=== PATIENT | female | born 1975 | race Caucasian/White ===

== ENCOUNTER 2022-02-10 12:55 | Emergency (ER) | payer BC ==
[~2022-02-10] VITALS: Ht 154.9 cm; Wt 74.8 kg
[2022-02-10 13:50] LABS: BASOPHILS % (AUTO) 0.4 % (0.0-5.0); EOSINOPHILS % (AUTO) 1.3 % (0.0-8.0); HEMATOCRIT 41.6 % (36-48); LYMPHOCYTES % (AUTO) 43.2 % (21.0-51.0); MEAN CORPUSCULAR HEMOGLOBIN 31.7 pg (27.0-33.0); MEAN CORPUSCULAR HGB CONC 35.1 g/dL (32.0-36.0); MEAN CORPUSCULAR VOLUME 90.4 fL (79-99); MONOCYTES % (AUTO) 7.7 % (3.0-13.0); NEUTROPHILS % (AUTO) 47.1 % (40.0-77.0); PLATELET COUNT (AUTO) 238 K/uL (130-400); RED CELL DISTRIBUTION WIDTH 11.9 % (11.0-15.5); WHITE BLOOD COUNT (AUTO) 7.2 K/uL (4.8-10.8)
[2022-02-10 14:03] LABS: CREATININE 0.6 mg/dL (0.5-1.5); POTASSIUM 3.5 mmol/L (3.5-5.1)
[2022-02-10 14:07] LABS: ALBUMIN 3.6 g/dL (3.5-5.0)
[2022-02-10 15:22] LABS: APPEARANCE,URINE Clear (CLEAR); BILIRUBIN,URINE Negative (NEGATIVE); COLOR,URINE Yellow (YELLOW); GLUCOSE, URINE (UA) Negative (NEGATIVE); KETONES,URINE Negative (NEGATIVE); LEUKOCYTE ESTERASE ,URINE Negative (NEGATIVE); NITRATE,URINE Negative (NEGATIVE); OCCULT BLOOD,URINE Negative (NEGATIVE); PROTEIN,URINE Negative (NEGATIVE); UROBILINOGEN,URINE 0.2 mg/dL (0.2-1.0)
[2022-02-10 15:25] LABS: HCG,QUALITATIVE URINE NEGATIVE (NEGATIVE)
[2022-02-10 15:36] LABS: BACTERIA,URINE Few /HPF (None Seen); RBC,URINE None Seen /HPF (0-1); WBC,URINE None Seen /HPF (0-1)
[2022-02-10] MEDS ORDERED: IOHEXOL 350 MG/ML 100ML INFUS..BTL IV ONE (15:45)
[2022-02-10] MEDS ORDERED: NAPR-1196 PO (17:01)
[2022-02-10 17:16] VITALS: BP 136/80
== END 2022-02-10 17:22 | disposition home or self-care (01) ==
LOC: EDH 12:55
DX: I82.612 Acute embolism and thrombosis of superficial veins of left upper extremity (principal)
CPT/HCPCS: 99284; 71270; 93971; 84484; 80053; 85025; 85378; 81001; 81025; 36415; 93005; Q9967